=== PATIENT | male | born 2000 | race Asian ===

== ENCOUNTER 2019-07-15 19:33 | Emergency (ER) | payer OTHER ==
[2019-07-15 19:41] VITALS: BP 144/83
--- NOTE | 2019-07-15 19:58 | ED ---
Head Injury - HPI Summary HPI Summary: 18 year old M with no PMHx arriving via private car to [facility] accompanied by male friends complains of laceration above his hairline after hitting his head on car trunk while opening it at 1930 today 07/15/2019. No LOC, headache, or pain. Medications reviewed. He is up to date on his tetanus vaccination. - History Of Current Complaint Chief Complaint: EDHeadInjury Stated Complaint: HEAD LAC PER PT Time Seen by Provider: 07/15/19 19:55 Hx Obtained From: Patient Mechanism Of Injury: Other - hitting his head on car trunk while opening it Onset/Duration: Started Minutes Ago - 30, Still Present Severity Currently: None Pain Intensity: 0 Pain Scale Used: 0-10 Numeric Associated Signs And Symptoms: Negative - LOC, headache, pain - Allergies/Home Medications Allergies/Adverse Reactions: Allergies Allergy/AdvReac Type Severity Reaction Status Date / Time No Known Allergies Allergy Verified 07/15/19 19:39 PMH/Surg Hx/FS Hx/Imm Hx Endocrine/Hematology History: Denies: Hx Diabetes Cardiovascular History: Denies: Hx Hypertension - Surgical History Surgical History: None Infectious Disease History: No Infectious Disease History: Denies: Traveled Outside the [place] in Last 30 Days - Family History Known Family History: Negative: Blood Disorder - Social History Alcohol Use: None Substance Use Type: Reports: None Hx Tobacco Use: No Smoking Status (MU): Never Smoked Tobacco Review of Systems Musculoskeletal: Negative - head pain Positive: Other - laceration above his hairline Neurological/Mental Status: Negative - LOC Negative: Headache All Other Systems Reviewed And Are Negative: Yes Physical Exam - Summary Physical Exam Summary: General: Well appearing, no distress HEENT: 2-cm laceration that is 2-cm above his hairline. PERRL. Soft tissue mass 1 cm behind R ear (chronic) Cardiovascular: Skin is well perfused Pulmonary: No respiratory distress, no tachypnea Abdomen: Non-distended Skin: Warm, pink, dry MSK: No edema, No cspine TTP Psych: Normal affect Neuro: A&Ox3 Triage Information Reviewed: Yes Vital Signs On Initial Exam: Initial Vitals Temp Pulse Resp BP Pulse Ox 98.9 F 74 15 144/83 99 07/15/19 19:38 07/15/19 19:38 07/15/19 19:38 07/15/19 19:38 07/15/19 19:38 Vital Signs Reviewed: Yes Procedures - Sedation Patient Received Moderate/Deep Sedation with Procedure: No - Laceration/Wound Repair 1 Location: head Length, Depth and Shape: 2-cm laceration that is 2-cm above his hairline Irrigated w/ Saline (ccs): 500 - tap water Closure: Skin Adhesive Diagnostics - Vital Signs Vital Signs Temp Pulse Resp BP Pulse Ox 07/15/19 19:38 98.9 F 74 15 144/83 99 - Laboratory Lab Statement: Any lab studies that have been ordered have been reviewed, and results considered in the medical decision making process. Head Injury Course/Dx Course Of Treatment: 18 y/o male p/w laceration to head. - 2 cm laceration above hairline, well approximated. Able to glue together. Tetanus UTD. No headache. LOC. - ambulates w steady gait. - chronic R sided post auricular soft tissue mass, no pain or erythema. Can f/u w PCP - Diagnoses Provider Diagnoses: Head injury, Laceration Discharge ED - Sign-Out/Discharge Documenting (check all that apply): Patient Departure - Discharge Plan Condition: Stable Disposition: HOME Patient Education Materials: Laceration (ED) Referrals: [facility],[place] [[employer], APPLICATION, OTHER] - Additional Instructions: you're seen today for laceration.Please keep the area dry and clean. Return to the emergency department or seek medical attention for drainage, redness to the area, increased pain around the laceration, severe headaches, confusion,. It was a pleasure taking care of you today. - Billing Disposition and Condition Condition: STABLE Disposition: Home - Attestation Statements Document Initiated by Scribe: Yes Documenting Scribe: Ann Hurley Provider For Whom [facility] is Documenting (Include Credential): Tashi Stokes MD Scribe Attestation: I, Ann Hurley, scribed for Tashi Stokes MD on 07/15/19 at 2019. Scribe Documentation Reviewed: Yes Provider Attestation: The documentation as recorded by the scribe, Ann Hurley accurately reflects the service I personally performed and the decisions made by me, Tashi Stokes MD Status of Scribe Document: Viewed
== END 2019-07-15 20:15 | disposition home or self-care (01) ==
LOC: ED 19:33
DX: S01.01XA Laceration without foreign body of scalp, initial encounter (principal); W22.8XXA Striking against or struck by other objects, initial encounter; Y92.9 Unspecified place or not applicable
CPT/HCPCS: 99281